=== PATIENT | female | born 1995 | race Caucasian/White ===

== ENCOUNTER 2017-05-20 11:08 | Emergency (ER) | payer BC ==
[2017-05-20 12:36] LABS: BASOPHIL % 0.1 % (0-2); PLATELET COUNT 225 x10^3mcL (130-400); RED CELL DISTRIBUTION WIDTH 13.1 % (11.5-14.5)
[2017-05-20 12:54] LABS: CALCIUM 8.4 mg/dL (8.5-10.1); CHLORIDE SERUM 103 mmol/L (98-107); CREATININE SERUM 0.7 mg/dL (0.6-1.0); GFR1 > 60 mL/min; GLUCOSE SERUM 103 mg/dL (74-106); POTASSIUM SERUM 3.7 mmol/L (3.5-5.1); SODIUM SERUM 139 mmol/L (136-145)
[2017-05-20 12:58] LABS: ALBUMIN 3.6 g/dL (3.4-5.0); ALKALINE PHOSPHATASE 75 U/L (46-116); ALT/SGPT 30 U/L (14-59); AMYLASE 50 U/L (25-115); AST/SGOT 16 U/L (15-37); BILIRUBIN TOTAL 0.5 mg/dL (0.20-1.00); LIPASE 83 IU/L (73-393); TOTAL PROTEIN, SERUM 7.3 g/dL (6.4-8.2)
[2017-05-20 14:30] VITALS: BP 115/50
== END 2017-05-20 14:30 | disposition home or self-care (01) ==
LOC: ED 11:08
PROVIDERS: Specialist
DX: R10.13 Epigastric pain (principal); E66.01 Morbid (severe) obesity due to excess calories
CPT/HCPCS: 36415; 83880; J1885; Q0092; Q0162

== ENCOUNTER 2017-05-21 20:17 | Emergency (ER) | payer BC ==
[2017-05-21 22:50] VITALS: BP 118/74
== END 2017-05-21 22:50 | disposition home or self-care (01) ==
LOC: ED 20:17
DX: K29.70 Gastritis, unspecified, without bleeding (principal); K27.9 Peptic ulcer, site unspecified, unspecified as acute or chronic, without hemorrhage or perforation; Z79.1 Long term (current) use of non-steroidal anti-inflammatories (NSAID); Z79.899 Other long term (current) drug therapy

== ENCOUNTER 2017-08-24 15:25 | Emergency (ER) | payer BC ==
[2017-08-24 17:12] VITALS: BP 116/57
== END 2017-08-24 17:12 | disposition home or self-care (01) ==
LOC: ED 15:25
DX: S29.012A Strain of muscle and tendon of back wall of thorax, initial encounter (principal); S46.812A Strain of other muscles, fascia and tendons at shoulder and upper arm level, left arm, initial encounter; R07.89 Other chest pain; V89.2XXA Person injured in unspecified motor-vehicle accident, traffic, initial encounter; Y93.89 Activity, other specified; Y99.8 Other external cause status; Y92.89 Other specified places as the place of occurrence of the external cause
CPT/HCPCS: 72072

== ENCOUNTER 2017-10-29 17:07 | Emergency (ER) | payer BC ==
[~2017-10-29] VITALS: Ht 154.9 cm; Wt 83.0 kg
[2017-10-29 17:16] VITALS: Ht 154.9 cm; Wt 83.0 kg
[2017-10-29 18:38] VITALS: BP 141/69
== END 2017-10-29 18:38 | disposition home or self-care (01) ==
LOC: ED 17:07
DX: M54.5 Low back pain (principal); N93.9 Abnormal uterine and vaginal bleeding, unspecified

== ENCOUNTER 2018-01-09 08:30 | Emergency (ER) | payer BC ==
[~2018-01-09] VITALS: Ht 157.5 cm; Wt 81.6 kg
[2018-01-09 08:39] VITALS: Ht 157.5 cm; Wt 81.6 kg
[2018-01-09 09:46] LABS: microscopic required? YES; urine erythrocyte 3+ (NEGATIVE)
[2018-01-09 09:53] LABS: BASOPHIL % 0.3 % (0-2); PLATELET COUNT 268 x10^3mcL (130-400)
[2018-01-09 11:22] VITALS: BP 119/66
== END 2018-01-09 11:22 | disposition home or self-care (01) ==
LOC: ED 08:30
PROVIDERS: Specialist
DX: O20.0 Threatened abortion (principal); Z3A.00 Weeks of gestation of pregnancy not specified
CPT/HCPCS: 36415

== ENCOUNTER 2018-01-10 13:18 | Emergency (ER) | payer BC ==
[~2018-01-10] VITALS: Ht 154.9 cm; Wt 82.5 kg
[2018-01-10 13:53] VITALS: BP 130/79; Ht 154.9 cm; Wt 82.5 kg
== END 2018-01-10 16:11 | disposition home or self-care (01) ==
LOC: ED 13:18
DX: O03.9 Complete or unspecified spontaneous abortion without complication (principal); M54.5 Low back pain; R10.30 Lower abdominal pain, unspecified

== ENCOUNTER 2018-04-16 07:35 | Emergency (ER) | payer BC ==
[~2018-04-16] VITALS: Ht 154.9 cm; Wt 84.8 kg
[2018-04-16 07:40] VITALS: Ht 154.9 cm; Wt 84.8 kg
[2018-04-16 09:01] VITALS: BP 122/69
== END 2018-04-16 09:01 | disposition home or self-care (01) ==
LOC: ED 07:35
DX: S29.012A Strain of muscle and tendon of back wall of thorax, initial encounter (principal); V89.2XXA Person injured in unspecified motor-vehicle accident, traffic, initial encounter; Y93.89 Activity, other specified; Y92.89 Other specified places as the place of occurrence of the external cause; Y99.8 Other external cause status
CPT/HCPCS: 72072

== ENCOUNTER 2018-04-17 19:32 | Emergency (ER) | payer BC ==
[~2018-04-17] VITALS: Ht 154.9 cm; Wt 84.9 kg
[2018-04-17 19:43] VITALS: Ht 154.9 cm; Wt 84.9 kg
[2018-04-17 23:29] VITALS: BP 138/80
== END 2018-04-17 23:29 | disposition home or self-care (01) ==
LOC: ED 19:32
DX: S13.9XXA Sprain of joints and ligaments of unspecified parts of neck, initial encounter (principal); R20.2 Paresthesia of skin; V43.62XA Car passenger injured in collision with other type car in traffic accident, initial encounter; Y93.89 Activity, other specified; Y92.89 Other specified places as the place of occurrence of the external cause; Y99.8 Other external cause status

== ENCOUNTER 2018-11-21 12:10 | Emergency (ER) | payer OTHER ==
[~2018-11-21] VITALS: Ht 154.9 cm; Wt 89.4 kg
[2018-11-21 12:26] VITALS: BP 139/88; Ht 154.9 cm; Wt 89.4 kg
== END 2018-11-21 14:46 | disposition left against medical advice (07) ==
LOC: ED 12:10
DX: Z53.21 Procedure and treatment not carried out due to patient leaving prior to being seen by health care provider (principal)